=== PATIENT | female | born 1935 | race Caucasian/White ===

== ENCOUNTER → 2020-06-12 | Outpatient (CLI) | payer OTHER ==
[~2020-06-12] MED LIST: CALCIUM 600 MG1 EACH; GLUC500; MULT50L; Sleep Aid25 M1
== END ==
LOC: LAB 07:47 → LAB SHORT 07:47
DX: L30.8 Other specified dermatitis (principal)
CPT/HCPCS: 88305; 88312

== ENCOUNTER → 2021-02-20 | Outpatient (CLI) | payer OTHER | END | disposition home or self-care (01) | LOC: LAB SHORT 14:11 → LAB 14:11 | DX: D48.5 Neoplasm of uncertain behavior of skin (principal) | CPT/HCPCS: 88305 ==

== ENCOUNTER 2021-05-03 08:16 | Day surgery (SDC) | payer OTHER ==
[~2021-05-03] VITALS: Ht 152.4 cm; Wt 49.7 kg
[~2021-05-03 08:16] MED LIST changes: +ASPI81CH PO; +CALCIUM 600 +1 EA11 PO; +DICLEGIS DR 101 EAC1 PO; +GLUC500 PO; +L-Lysine500 M1 PO; +MULTIPLE VITAM1 EACH PO; +OMEGA-3 FISH O1 EAC5 PO; +VIT1CAPS12 PO
[2021-05-03] MEDS ORDERED: ZYRTEC10 M4 (08:53)
== END 2021-05-03 10:39 | disposition home or self-care (01) ==
LOC: ORSCSDS 08:16
PROVIDERS: Internal Medicine Gastroenterology
PROC: 0DBL8ZX Excision of Transverse Colon, Via Natural or Artificial Opening Endoscopic, Diagnostic (ICD-10-PCS; principal; 2021-05-03 09:30)
DX: Z12.11 Encounter for screening for malignant neoplasm of colon (principal); Z86.010 Personal history of colon polyps; K57.30 Diverticulosis of large intestine without perforation or abscess without bleeding; D12.3 Benign neoplasm of transverse colon; Z87.891 Personal history of nicotine dependence; Z79.82 Long term (current) use of aspirin; Z79.899 Other long term (current) drug therapy
CPT/HCPCS: 88305; J2704; J7120

== ENCOUNTER 2025-01-14 13:05 | Emergency (ER) | payer OTHER, MEDICARE ==
[~2025-01-14] VITALS: Ht 152.4 cm; Wt 49.9 kg
[~2025-01-14 13:05] MED LIST changes: +ZYRTEC10 M4
[2025-01-14 13:33] VITALS: BP 166/92
== END 2025-01-14 15:53 | disposition home or self-care (01) ==
LOC: ER 13:05
DX: S20.211A Contusion of right front wall of thorax, initial encounter (principal); W01.0XXA Fall on same level from slipping, tripping and stumbling without subsequent striking against object, initial encounter; Z87.891 Personal history of nicotine dependence; Z79.899 Other long term (current) drug therapy; Z88.2 Allergy status to sulfonamides; Z88.5 Allergy status to narcotic agent
CPT/HCPCS: 71046; 99283-25